=== PATIENT | male | born 1950 | race Caucasian/White ===

== ENCOUNTER 2018-05-18 06:41 | Day surgery (SDC) | payer MEDICARE, MEDICAID ==
[~2018-05-18] VITALS: Ht 172.7 cm; Wt 111.1 kg
[2018-05-18] VITALS (8 sets, daily range): BP systolic 110–139; BP diastolic 68–80
[~2018-05-18 06:41] MED LIST: ASPIRIN EC81 MG ORAL; Atarax PO; CARDURA4 MG ORAL; DICLOFENAC SODI75 MG ORAL; Delzicol PO; FISH OIL 1,0001 EAC1 ORAL; HALOPERIDOL2 MG PO; HALOPERIDOL5 MG ORAL; LORAZEPAM2 MG ORAL; LUMIGAN2.5 ML BOTH EYES; NEOMYCIN BOTH EARS; NITROSTAT0.4 M1 SL; PROBIOTIC1 EAC4 PO; PROSCAR5 MG ORAL; TRIHEXYPHENIDYL2 MG ORAL; TYLENOL EXTRA500 MG ORAL; Toprol XL PO; Vit D2 PO; [UNRECOGNIZED DRUG - OTHER] BOTH EARS; [UNRECOGNIZED DRUG - OTHER] PO
[2018-05-18] MEDS ORDERED: fentaNYL 100 mcg/2 mL IV PRN (06:45)
[2018-05-18] MEDS ORDERED: DiphenhydrAMINE 50mg/ml Inj IVP PRN (06:45)
[2018-05-18] MEDS ORDERED: Atropine Inj 1mg/10ml Syr IV PRN (06:45)
[2018-05-18] MEDS ORDERED: Midazolam 2mg/2ml Inj IVP PRN (06:45)
[2018-05-18] MEDS ORDERED: Labetalol 5mg/ml 20ml vial IV PRN (06:45)
--- NOTE | 2018-05-18 06:49 | Anethesia Preoperative Eval ---
Anesthesia Pre-op PMH/ROS General Date of Evaluation: May 18, 2018 Time of Evaluation: 06:46 Anesthesiologist: ena ASA Score: ASA 3 Mallampati Score Class I : Soft palate, uvula, fauces, pillars visible Class II: Soft palate, uvula, fauces visible Class III: Soft palate, base of uvula visible Class IV: Only hard plate visible Mallampati Classification: Class II Surgeon: latanya Diagnosis: colon screening, abdominal pain Surgical Procedure: colonoscopy Anesthesia History: none Social History: smoking - nonsmoker Family History: no anesthesia problems Allergies: Coded Allergies: SULFA (SULFONAMIDE ANTIBIOTICS) (Verified Allergy, Intermediate, rash, 05/17) Medications: see eMAR Past Medical History Cardiovascular: Reports: CAD, PR; Denies: HTN, valve dz, arrhythmia, other Pulmonary: Denies: asthma, COPD, DEWAYNE, other Gastrointestinal/Genitourinary: Reports: other - colon polyps, bph,; Denies: GERD, CRI, ESRD Neurologic/Psychiatric: Reports: depression/anxiety Endocrine: Denies: DM, hypothyroidism, steroids, other HEENT: Reports: glaucoma, other - ear infection, hx/o epistaxis Musculoskeletal/Integumentary: Reports: OA Other: obesity Anesthesia Pre-op Phys. Exam Physician Exam Last Vital Signs Date Time Temp Pulse Resp B/P (MAP) Pulse Ox O2 Delivery O2 Flow Rate FiO2 05/18/18 07:22 Room Air 05/18/18 07:14 97.1 68 18 139/75 (96) 95 97.1 Constitutional: NAD Neurologic: CN 2-12 intact Cardiovascular: RRR Respiratory: CTA Gastrointestinal: S/NT/ND Airway Exam Mallampati Score: Class II MO: full Neck: supple TMD: 2fb ROM: limited Anesthesia Pre-op A/P Risk Assessment & Plan Assessment: asa3 Plan: mac Status Change Before Surgery: No Pre-Antibiotics Drug: Annabelle Mary MD May 18, 2018 06:49
[2018-05-18] MEDS ORDERED: PRAVASTATIN SOD20 M1 ORAL (07:20)
[2018-05-18] MEDS ORDERED: LR 1000ml ONE (07:30)
[2018-05-18] MEDS ORDERED: Lidocaine 1% MPF 10mg/ml 5ml ONE (07:30)
[2018-05-18] MEDS ORDERED: Propofol 200mg/20ml IV ONE (07:30)
--- NOTE | 2018-05-18 07:46 | Short Stay Surgery H&P ---
History of Present Illness History of Present Illness Chief Complaint Screening colon with history of colon polyps/colitis HPI Rabia Vergara is a 67 year old male who was admitted on for Abdominal Pain/ screening colon for polyps with history of colitis. Patient History Allergies: Coded Allergies: SULFA (SULFONAMIDE ANTIBIOTICS) (Verified Allergy, Intermediate, rash, 05/17) Medication History Scheduled Aspirin Ec* (Aspirin Ec*), 81 MG ORAL DAILY, (Reported) Bimatoprost (Lumigan), 1 DROP BOTH EYES HS, (Reported) Diclofenac Sod* (Voltaren*), 75 MG ORAL PRN, (Reported) Doxazosin Mesylate* (Cardura*), 4 MG ORAL HS, (Reported) Finasteride* (Proscar*), 5 MG ORAL DAILY, (Reported) Haloperidol (Haloperidol), 5 MG ORAL HS, (Reported) Lactobacillus Combo No.10 (Probiotic), 1 EACH PO DAILY, (Reported) Lorazepam* (Lorazepam*), 2 MG ORAL HS, (Reported) [place]-3 Fatty Acids/Fish Oil* (Fish Oil 1,000 Mg Softgel*), 1 CAP ORAL DAILY, ( Reported) Pravastatin Sod* (Pravastatin Sod*), 20 MG ORAL BEDTIME, (Reported) Trihexyphenidyl Hcl* (Artane*), 2 MG ORAL TWICE A DAY, (Reported) [Atarax], 25 MG PO BID, (Reported) [Delzicol], 1,600 MG PO BID, (Reported) [Toprol XL], 25 MG PO BID, (Reported) [Vit D2], 50,000 INTLU PO QWEEK, (Reported) [polymycin/neomycin], 1 DRP BOTH EARS PRN, (Reported) Scheduled PRN Acetaminophen* (Tylenol Extra Strength*), 500 MG ORAL Q8H PRN for Prn Headache/ Temp > 101, (Reported) Nitroglycerin (Nitrostat), 0.4 MG SL Q5M X3 DOSES PRN for CHEST PAIN, (Reported) Review of Systems Cardiovascular: Reports: no symptoms Respiratory: Reports: no symptoms Skeletal: Reports: no symptoms Gastrointestinal: Reports: no symptoms Genitourinary: Reports: no symptoms Neurologic: Reports: no symptoms Endocrine: Reports: no symptoms Hematologic: Reports: no symptoms Physical Exam Vital Signs Last Vital Signs Date Time Temp Pulse Resp B/P (MAP) Pulse Ox O2 Delivery O2 Flow Rate FiO2 05/18/18 07:22 Room Air 05/18/18 07:14 97.1 68 18 139/75 (96) 95 97.1 Skin: normal HENT: normal Heart: normal Lungs: normal Abdomen: normal Extremities: normal Genitourinary: normal Plan Plan of Care Total colonoscopy Preop Interventions None. Summary of Findings See the reports Attestation Are the patient's medical conditions optimized for surgery? Attestation Response: yes Judi Acuna MD May 18, 2018 07:46
--- NOTE | 2018-05-18 07:47 | Pre-Procedure Note/Attestation ---
Pre-Procedure Note/Attestation Complete Prior to Procedure Planned Procedure: left Procedure Narrative: Examination of the colon through endoscopy Indications for Procedure Pre-Operative Diagnosis: R/O colon polyp/colitis Attestation I attest that I discussed the nature of the procedure; its benefits; risks and complications; and alternatives (and the risks and benefits of such alternatives ), prior to the procedure, with the patient (or the patient's legal account service representative). I attest that, if there was a reasonable possibility of needing a blood transfusion, the patient (or the patient's legal account service representative) was given the [facility] standardized written summary, pursuant to the Adan Sharon Blood Safety Act ([place] Health and Safety Code # 1645, as amended). I attest that I re-evaluated the patient just prior to the surgery and that there has been no change in the patient's H&P, except as documented below: Judi Acuna MD May 18, 2018 07:47
--- NOTE | 2018-05-18 08:28 | Endoscopy Procedure Note ---
Endoscopy Procedure Note General Indication for Procedure: History of colon polyps/chronic colitis Procedures Performed: colonoscopy - Mild patchy topical colitis at rectosigmoid and distal transverse biopsied. Small mucosal tag lesions, benign looking biopsied, mostly suggestive of colitis induced, biopsies taken per random from different parts of the colon. Specimen: yes Pt Tolerated Procedure Well: Yes Estimated Blood Loss: none Anesthesia Anesthesiologist: Dr. Rodriguez Anesthesia: moderate sedation Medications Medication Given: see anesthesia record Inserted Devices Implant(s) used?: No Quality Quality of Bowel Preparation: Fair Did scope reach the cecum?: Yes Was there any complications?: No GI Core Measures 50 yrs or older w/o bx or poly: Yes 10yrs. F/U not recommended: Yes 18 years or older w/prev. colo: Yes <3yrs. since last colonoscopy: No Last colonoscopy >= to 3yrs: Yes Judi Acuna MD May 18, 2018 08:28
--- NOTE | 2018-05-18 08:28 | Discharge Instructions ---
Discharge Instructions Discharge Instructions Follow up with: See the docotor after 2 weeks in the office. For Congestive Heart Failure Reminder Report to your physician any weight gain of 5 pounds or more in one week. Judi Acuna MD May 18, 2018 08:28
--- NOTE | 2018-05-18 09:08 | 48 Hour Post Anesthesia Eval ---
Post Anesthesia Evaluation Procedure: colonoscopy Date of Evaluation: May 18, 2018 Time of Evaluation: 08:42 Blood Pressure Systolic: 120 - 80 0: 80 Pulse Rate: 66 Respiratory Rate: 18 Temperature (Fahrenheit): 98.0 O2 Sat by Pulse Oximetry: 95 Airway: patent Nausea: No Vomiting: No Pain Intensity: 0 Hydration Status: adequate Cardiopulmonary Status: stable Mental Status/LOC: patient returned to baseline Post-Anesthesia Complications: none Follow-up care needed: N/A Annabelle Reed MD May 18, 2018 09:08
--- NOTE | 2018-05-18 09:08 | Immediate Post-Op Evaluation ---
Immediate Post-Op Evalulation Immediate Post-Op Evalulation Procedure: colonoscopy w/bx Date of Evaluation: May 18, 2018 Time of Evaluation: 08:40 IV Fluids: 250ml lr Blood Products: none Estimated Blood Loss: negligible Blood Pressure Systolic: 114 Blood Pressure Diastolic: 70 Pulse Rate: 66 Respiratory Rate: 18 O2 Sat by Pulse Oximetry: 95 Temperature (Fahrenheit): 98.0 Pain Score (1-10): 0 Nausea: No Vomiting: No Complications none Patient Status: awake, reacts, patent Hydration Status: adequate Drug: Annabelle Mary MD May 18, 2018 09:08
--- NOTE | 2018-05-24 09:00 | Procedure Note ---
DATE OF PROCEDURE: 05/18/2018 SURGEON: Judi Acuna M.D. PROCEDURE: Total colonoscopy with multiple biopsies. PREOPERATIVE DIAGNOSIS: History of chronic colitis and colon polyps/screening colon. POSTOPERATIVE DIAGNOSES: 1. Patchy scattered colitis at the rectosigmoid angle and the splenic flexure, biopsied. 2. Several mucosal tags found in the left colon looked benign and biopsied. It mostly looks, a reaction secondary to chronic colitis. 3. Redundant colon. MEDICATION USED: Per Dr. Rodriguez, anesthesiologist. INSTRUMENT: GIF Olympus videocolonoscope. DESCRIPTION OF PROCEDURE: The patient after arriving at endoscopy unit, was told about risks and benefits of the procedure, which he accepted and signed the informed consent. At this time, he was put on the left lateral decubitus position. After adequate IV sedation, the scope was gently passed through the anal area, which revealed normal findings without any evidence of gross pathology such as hemorrhoids or colitis. Upon advancing the scope towards the rectosigmoid angle, at the level of 35 to 40 cm from the anus, there was evidence of mild inflammatory process suggestive of mild chronic colitis. This was patchy area approximately areas of about 5 to 6 cm. It looked benign and nonfriable. Biopsy from this area was obtained and subsequently scope was passed further up, which revealed evidence of a small mucosal tag, very soft tissue looking, and it looked like it was secondary reaction towards the colonic colitis. As I mentioned, it looked benign and a biopsy was taken from them. At this time, the scope was gradually advanced towards the left descending colon and reached towards the splenic flexure whereby there was another patchy area of mild colitis without any evidence of friability or bleeding. Biopsy from this area was also obtained and gradually the scope was advanced into the transverse colon reaching to hepatic flexure and guided into the right colon all the way to the base of the cecum. There was no any other pathology found. The colon mucosa in these areas looked completely normal. At this point, the scope was gradually pulled out and biopsies per random were taken from different parts of the colon even though the areas that have looked normal. The colon cleanup was fair and withdrawal of the scope approximately took about 6 to 7 minutes and no other findings except what is stated was seen. The patient tolerated the procedure well and left the endoscopy room in a good condition. Said Jonathan Acuna DR: KAREN JOB#: [id number] CC:
== END 2018-05-18 10:00 | disposition home or self-care (01) ==
LOC: GAS 06:41
DX: Z12.11 Encounter for screening for malignant neoplasm of colon (principal); K52.89 Other specified noninfective gastroenteritis and colitis; Q43.8 Other specified congenital malformations of intestine; Z86.010 Personal history of colon polyps; I25.10 Atherosclerotic heart disease of native coronary artery without angina pectoris; I25.2 Old myocardial infarction; F32.9 Major depressive disorder, single episode, unspecified; F41.9 Anxiety disorder, unspecified; M19.90 Unspecified osteoarthritis, unspecified site; H40.9 Unspecified glaucoma; Z88.2 Allergy status to sulfonamides
CPT/HCPCS: 45380; J2704; J7120; 94003; 94150

== ENCOUNTER 2020-07-14 09:27 | Day surgery (SDC) | payer MEDICARE, MEDICAID ==
[2020-07-14] VITALS (10 sets, daily range): BP systolic 116–141; BP diastolic 59–78
[~2020-07-14] VITALS: Ht 172.7 cm; Wt 113.4 kg
--- NOTE | 2020-07-14 07:35 | Anethesia Preoperative Eval ---
Anesthesia Pre-op PMH/ROS General Date of Evaluation: Jul 14, 2020 Time of Evaluation: 07:31 Anesthesiologist: ena ASA Score: ASA 3 Mallampati Score Class I : Soft palate, uvula, fauces, pillars visible Class II: Soft palate, uvula, fauces visible Class III: Soft palate, base of uvula visible Class IV: Only hard plate visible Mallampati Classification: Class II Surgeon: latanya Diagnosis: abdominal pain Surgical Procedure: egd/colonoscopy Anesthesia History: none Social History: smoking - nonsmoker Family History: no anesthesia problems Allergies: Coded Allergies: SULFA (SULFONAMIDE ANTIBIOTICS) (Verified Allergy, Intermediate, rash, 05/17/18) Medications: see eMAR Patient NPO?: Yes Past Medical History Cardiovascular: Reports: HTN, CAD, SD, other - hyperlipidemia, Gastrointestinal/Genitourinary: Reports: other - hx/o colon polyps, hemorrhoids Neurologic/Psychiatric: Reports: depression/anxiety HEENT: Reports: glaucoma, other - epistasis Musculoskeletal/Integumentary: Reports: OA Other: obesity Anesthesia Pre-op Phys. Exam Physician Exam Last Vital Signs Date Time Temp Pulse Resp B/P (MAP) Pulse Ox O2 Delivery O2 Flow Rate FiO2 07/14/20 10:05 Room Air 07/14/20 09:52 97.6 74 18 141/73 96 Constitutional: NAD Neurologic: CN 2-12 intact Cardiovascular: RRR Respiratory: CTA Gastrointestinal: S/NT/ND Airway Exam Mallampati Score: Class II MO: limited Neck: flexible TMD: 2fb ROM: limited Anesthesia Pre-op A/P Labs Microbiology Date/Time Source Procedure Growth Status 07/13/20 08:04 Nasopharynx SARS-CoV-2 RdRp Gene Assay - Final Complete Risk Assessment & Plan Assessment: asa3 Plan: mac Pre-Antibiotics Drug: Annabelle Mary MD Jul 14, 2020 07:35
[~2020-07-14 09:27] MED LIST changes: +Atropine Inj 1mg/10ml Syr IVP PRN; +DiphenhydrAMINE 50mg/ml Inj IVP PRN; +LR 1000ml 1,000 ML IVLG SCH; +Labetalol 5mg/ml 20ml vial IV PRN; +Midazolam 2mg/2ml Inj IVP PRN; +PRAVASTATIN SOD20 M1 ORAL; +fentaNYL 100 mcg/2 mL IV PRN
[2020-07-14] MEDS ORDERED: Lidocaine 1% MPF 10mg/ml 5ml ONE (10:00)
[2020-07-14] MEDS ORDERED: LR 1000ml ONE (10:00)
--- NOTE | 2020-07-14 10:02 | Short Stay Surgery H&P ---
History of Present Illness History of Present Illness Chief Complaint Rectal bleeding and abdominal pains with history of colitis, IBD. KURT Vergara is a 69 year old male who was admitted on for Abdominal Pain/rectal bleeding and activation of colitis, IBD Patient History Allergies: Coded Allergies: SULFA (SULFONAMIDE ANTIBIOTICS) (Verified Allergy, Intermediate, rash, 05/17/18) PAST MEDICAL HISTORY: (1) Hypertension (2) Coronary artery disease (3) Myocardial infarction (4) Hyperlipidemia (5) BPH (benign prostatic hyperplasia) Medication History Scheduled Aspirin Ec* (Aspirin Ec*), 81 MG ORAL DAILY, (Reported) Bimatoprost (Lumigan), 1 DROP BOTH EYES HS, (Reported) Diclofenac Sod* (Voltaren*), 75 MG ORAL PRN, (Reported) Doxazosin Mesylate* (Cardura*), 4 MG ORAL HS, (Reported) Finasteride* (Proscar*), 5 MG ORAL DAILY, (Reported) Haloperidol (Haloperidol), 5 MG ORAL HS, (Reported) Lactobacillus Combo No.10 (Probiotic), 1 EACH PO DAILY, (Reported) Lorazepam* (Lorazepam*), 2 MG ORAL HS, (Reported) [place]-3 Fatty Acids/Fish Oil* (Fish Oil 1,000 Mg Softgel*), 1 CAP ORAL DAILY, (Reported) Pravastatin Sod* (Pravastatin Sod*), 20 MG ORAL BEDTIME, (Reported) Trihexyphenidyl Hcl* (Artane*), 2 MG ORAL TWICE A DAY, (Reported) [Atarax], 25 MG PO BID, (Reported) [Delzicol], 1,600 MG PO BID, (Reported) [Toprol XL], 25 MG PO BID, (Reported) [Vit D2], 50,000 INTLU PO QWEEK, (Reported) [polymycin/neomycin], 1 DRP BOTH EARS PRN, (Reported) Scheduled PRN Acetaminophen* (Tylenol Extra Strength*), 500 MG ORAL Q8H PRN for Prn Headache/Temp > 101, (Reported) Nitroglycerin (Nitrostat), 0.4 MG SL Q5M X3 DOSES PRN for CHEST PAIN, (Reported) Review of Systems Cardiovascular: Reports: hypertension, angina Respiratory: Reports: no symptoms Skeletal: Reports: no symptoms Gastrointestinal: Reports: obesity, gastro esophageal reflux disease Genitourinary: Reports: BPH Neurologic: Reports: no symptoms Endocrine: Reports: no symptoms Hematologic: Reports: no symptoms Physical Exam Vital Signs Last Vital Signs Date Time Temp Pulse Resp B/P (MAP) Pulse Ox O2 Delivery O2 Flow Rate FiO2 07/14/20 09:52 97.6 74 18 141/73 96 Room Air Skin: normal HENT: normal Heart: normal Lungs: normal Abdomen: abnormal Extremities: normal Genitourinary: normal Plan Plan of Care Upper and lower GI endoscopies with biopsies. Preop Interventions None, except obtaining EKG before the procedure. Summary of Findings See the reports. Attestation Are the patient's medical conditions optimized for surgery? Attestation Response: yes Judi Acuna MD Jul 14, 2020 10:02
--- NOTE | 2020-07-14 10:03 | Pre-Procedure Note/Attestation ---
Pre-Procedure Note/Attestation Complete Prior to Procedure Planned Procedure: left Procedure Narrative: Examination of the upper and the lower GI tract via endoscopy and obtaining biopsies. Indications for Procedure Pre-Operative Diagnosis: R/O colitis and ulcers/gastritis/peptic ulcer. Attestation I attest that I discussed the nature of the procedure; its benefits; risks and complications; and alternatives (and the risks and benefits of such alternatives), prior to the procedure, with the patient (or the patient's legal ambulatory services representative). I attest that, if there was a reasonable possibility of needing a blood transfusion, the patient (or the patient's legal ambulatory services representative) was given the [place] [facility] standardized written summary, pursuant to the Adan Combes Blood Safety Act ([place] Health and Safety Code # 1645, as amended). I attest that I re-evaluated the patient just prior to the surgery and that there has been no change in the patient's H&P, except as documented below: Judi Acuna MD Jul 14, 2020 10:03
--- NOTE | 2020-07-14 10:04 | Discharge Instructions ---
Discharge Instructions Discharge Instructions Follow up with: See the docotor in office after 2 weeks. For Congestive Heart Failure Reminder Report to your physician any weight gain of 5 pounds or more in one week. Judi Acuna MD Jul 14, 2020 10:04
--- NOTE | 2020-07-14 10:41 | Endoscopy Procedure Note ---
Endoscopy Procedure Note General Indication for Procedure: abdominal pains/sevre rectal bleeding with history of IBD Procedures Performed: EGD - Completely normal upper GI. Endoscopy, biopsy done per random from gastric body., colonoscopy - Severe left sided colitis from anal area upto 65 Cm from anus. Multople biopsies obtained from diffrent areas of colon. Transverse and ascending colon looked normal endoscopically. Specimen: yes Pt Tolerated Procedure Well: Yes Estimated Blood Loss: minimal Anesthesia Anesthesiologist: Dr. Reed. Anesthesia: moderate sedation Medications Medication Given: see anesthesia record Inserted Devices Implant(s) used?: No Quality Quality of Bowel Preparation: Excellent Did scope reach the cecum?: Yes Was there any complications?: No GI Core Measures 50 yrs or older w/o bx or poly: Yes 10yrs. F/U recommended: Yes If not recommended, why?: <3yrs. since last colonoscopy: Yes Med reason:<3 yrs.: System Reason:<3 yrs.: Last colonoscopy >= to 3yrs: No Judi Acuna MD Jul 14, 2020 10:41
--- NOTE | 2020-07-14 11:55 | Immediate Post-Op Evaluation ---
Immediate Post-Op Evalulation Immediate Post-Op Evalulation Procedure: egd/colonoscopy w/bx Date of Evaluation: Jul 14, 2020 Time of Evaluation: 11:04 Blood Products: none Estimated Blood Loss: negligible Blood Pressure Systolic: 127 Blood Pressure Diastolic: 62 Pulse Rate: 78 Respiratory Rate: 18 O2 Sat by Pulse Oximetry: 94 Temperature (Fahrenheit): 97.3 Pain Score (1-10): 0 Nausea: No Vomiting: No Complications none Patient Status: awake, reacts, patent Hydration Status: adequate Drug: Annabelle Mary MD Jul 14, 2020 11:55
--- NOTE | 2020-07-14 11:56 | 48 Hour Post Anesthesia Eval ---
Post Anesthesia Evaluation Procedure: egd/colonoscopy w/bx Date of Evaluation: Jul 14, 2020 Time of Evaluation: 11:06 Blood Pressure Systolic: 116 0: 78 Pulse Rate: 64 Respiratory Rate: 18 Temperature (Fahrenheit): 97.3 O2 Sat by Pulse Oximetry: 94 Airway: patent Nausea: No Vomiting: No Pain Intensity: 0 Hydration Status: adequate Cardiopulmonary Status: stable Mental Status/LOC: patient returned to baseline Post-Anesthesia Complications: none Follow-up care needed: N/A Annabelle Reed MD Jul 14, 2020 11:56
--- NOTE | 2020-07-14 12:00 | Procedure Note ---
DATE OF PROCEDURE: 07/14/2020 SURGEON: Judi Acuna MD. PROCEDURE: Esophagogastroduodenoscopy with biopsy. PREOPERATIVE DIAGNOSES: 1. Abdominal pain. 2. History of GI bleeding. POSTOPERATIVE DIAGNOSIS: Completely normal upper GI endoscopy. Biopsy was taken per random from gastric body. MEDICATION USED: Per Dr. Sahu, anesthesiologist. INSTRUMENT: GIF Olympus upper GI video endoscope. DESCRIPTION OF PROCEDURE: The patient after arriving endoscopy unit, was told about risks and benefits of the procedure which he accepted and signed informed consent, which he accepted and signed informed consent. He was then put on the left lateral decubitus position. After adequate IV sedation, the scope was gently passed through the cricopharyngeal area, was lodged in the upper esophagus and was gradually advanced towards gastroesophageal junction. The entire length of the esophagus looked normal. No evidence of ulcers, bleeding site, stricture, etc. was found. GE junction also looked completely normal without Mcclure's or hiatal hernia. The scope at this time, advanced into the stomach. Gastric cavity was distended and gradually the areas of the fundus and the body and antrum were examined which looked completely normal without any pathology or gastritis or ulcers or tumors. One random biopsy from gastric body obtained and subsequently scope was passed through the pylorus. First and second portion of duodenum were found to be completely normal. At this time, the scope was pulled out and procedure was terminated. The patient tolerated the procedure well. Judi Acuna M.D. DR: Valerio JOB#: [id number] CC:
--- NOTE | 2020-07-14 17:45 | Procedure Note ---
DATE OF PROCEDURE: 07/14/2020 SURGEON: Judi Acuna MD PROCEDURE: Total colonoscopy with multiple biopsies. PREOPERATIVE DIAGNOSIS: History of severe left-sided colitis with recent aggravation of rectal bleeding. POSTOPERATIVE DIAGNOSIS: Severe left-sided colitis up to 60 cm from the anus, which was quite consistent with activation of ulcerative colitis. The rest of the colon looked normal. Multiple biopsies were obtained from different parts of the colon from cecum up to the rectum. MEDICATION USED: Per Dr. Sahu, anesthesiologist. INSTRUMENT: GIF Olympus video colonoscope. DESCRIPTION OF PROCEDURE: The patient after arriving in endoscopy unit, was told about risks and benefits of the procedure, which he accepted and signed informed consent. At this time, he was put in the left lateral decubitus position. After adequate IV sedation, the scope was gently passed through the anal area, which revealed evidence of significant irritability and ulceration in the whole rectum. At this time, biopsies were taken from this area and the scope was advanced towards rectosigmoid area and was pushed towards the left descending colon. All these areas were filled with significant ulcerations, exudative process, and nodularity, which were basically inflammatory process in nature. Numerous biopsies from different areas of the left side of the colon were obtained as this activation of the colitis continued all the way up to the level of 60 to 65 cm from anus. After this point, the colon mucosa looked completely normal and it continued to be the same all the way to the transverse colon, hepatic flexure, and ascending colon all the way to the base of the cecum where no at least endoscopic pathological findings were noted. At this time, the scope was gradually pulled out and multiple biopsies from different sides of the colon from proximal descending all the way to the rectum were obtained and was sent to the laboratory. The feeling was the patient did have severe activation of left-sided colitis at this time. The patient tolerated the procedure well and left the endoscopy room in good condition, and colon cleanup was adequate. Judi Acuna M.D. DR: Valerio JOB#: [id number] CC:
== END 2020-07-14 12:15 | disposition home or self-care (01) ==
LOC: GAS 09:27
DX: R10.9 Unspecified abdominal pain (principal); K52.9 Noninfective gastroenteritis and colitis, unspecified; K62.5 Hemorrhage of anus and rectum; K29.50 Unspecified chronic gastritis without bleeding; I25.2 Old myocardial infarction; I11.9 Hypertensive heart disease without heart failure; I25.10 Atherosclerotic heart disease of native coronary artery without angina pectoris; E78.5 Hyperlipidemia, unspecified; Z79.82 Long term (current) use of aspirin; Z79.899 Other long term (current) drug therapy; Z88.2 Allergy status to sulfonamides; E66.9 Obesity, unspecified; I20.9 Angina pectoris, unspecified; N40.0 Benign prostatic hyperplasia without lower urinary tract symptoms; Z86.010 Personal history of colon polyps; M19.90 Unspecified osteoarthritis, unspecified site; F32.9 Major depressive disorder, single episode, unspecified; F41.9 Anxiety disorder, unspecified
CPT/HCPCS: 43239; 45380; 86481; 94003; J2704; J7120; U0002; 94150